=== PATIENT | female | born 1955 | race Caucasian/White ===

== ENCOUNTER → 2023-08-22 10:05 | Outpatient (REF) | payer MEDICARE, OTHER, SELFPAY ==
[2023-08-22 11:38] LABS: % Basophils 1.2 % (0-2); % Eosinophils 4.7 % (0-6); % Immature Granulocytes 0.3 % (0-0.5); % Lymphocytes 28.8 % (20.5-51.1); % Monocytes 9.1 % (1.7-9.3); % Neutrophils 55.9 % (42.2-75.2); Absolute Basophils 0.1 10^3/uL (0-0.2); Absolute Eosinophils 0.3 10^3/uL (0-0.7); Absolute Lymphocytes 1.9 10^3/uL (1.2-3.4); Absolute Monocytes 0.6 10^3/uL (0.1-0.6); Absolute Neutrophils 3.6 10^3/uL (1.4-6.5); Hematocrit 41.9 % (37.0-47.0); Hemoglobin 13.7 g/dL (12.0-16.0); Mean Corp Hgb Conc. 32.7 g/dL (33.0-37.0); Mean Corpuscular Hgb 26.9 pg (27.0-31.0); Mean Corpuscular Volume 82.3 fL (81.0-99.0); Mean Platelet Volume 9.4 fL (7.4-10.4); Nucleated Red Blood Cells % 0 %; Platelet Count 322 10^3/uL (130-400); Red Blood Cell Count 5.09 10^6/uL (4.20-5.40); Red Cell Dist. Width 14.5 % (11.5-14.5); White Blood Cell Count 6.5 10^3/uL (4.8-10.8)
[2023-08-22 12:15] LABS: ALT (SGPT) 18 U/L (0-35); AST (SGOT) 29 U/L (14-36); Albumin 4.7 g/dl (3.5-5.0); Alkaline Phosphatase 113 U/L (38-126); Blood Urea Nitrogen 24 mg/dl (7-17); Carbon Dioxide 24 mmol/L (22-30); Chloride 106 mmol/L (98-107); Glucose 107 mg/dl (70-99); HDL Cholesterol 72 mg/dl; LDL Cholesterol, Calculated 194 mg/dl; Potassium 4.6 mmol/L (3.5-5.1); Sodium 140 mmol/L (135-145); Total Bilirubin 0.5 mg/dl (0.2-1.3); Total Cholesterol 303 mg/dl (50-199); Total Protein 7.5 g/dl (6.3-8.2); Triglyceride 187 mg/dl (10-149); Very Low Density Lipoprotein 37 mg/dl (0-30); eGFR > 60.00
[2023-08-22 12:19] LABS: TSH Reflex To Free T4 1.47 uIU/ml (0.47-4.68)
== END ==
LOC: HWLAB 10:05
PROVIDERS: ATTENDING PHYSICIAN Family Medicine
DX: E78.49 Other hyperlipidemia (principal); E78.5 Hyperlipidemia, unspecified; E66.3 Overweight
CPT/HCPCS: 36415; 80053; 80061; 84443; 85025

== ENCOUNTER 2023-12-03 19:53 | Emergency (ER) | payer MEDICARE, OTHER, SELFPAY ==
[2023-12-03 20:00] VITALS: BP 162/81
--- NOTE | 2023-12-03 22:05 | ED.SKININJ ---
HPI-Injury
General
Chief Complaint: Skin Problem
Source: patient
Exam Limitations: none
Time Seen by Provider: 12/03/23 21:21
History of Present Illness-Injury
Initial Injury comments:
68-year-old female presents with puncture wound to left foot. She stepped on a metal stake through her shoe and punctured her foot. She states it went in about a half an inch to an inch. She pulled it out. Went to an urgent care had x-rays taken
and she was told she had a foreign body and was told to come in here for evaluation. She received a tetanus vaccine at the urgent care. She notes pain to the plantar surface of her foot.
Past History
Past History
ED Past Medical History: Hypercholesterolemia
Social History
Tobacco: Non-smoker
Alcohol: Occasional
Drug: None
Personal:
Living: with family
Phy Exam
Physical Exam
Physical Exam:
General: Well-appearing female no acute respiratory distress
Skin: Small puncture wound noted plantar surface left foot at the level of the MTP joint of the first toe no visible or palpable foreign bodies. There is no bleeding. No surrounding erythema.
Musculoskeletal exam: The patient is tender over the plantar surface of the left foot at the MTP joint of the first toe
Course
Orders/Labs/Results
Orders:
Orders
12/03/23 21:59
Ciprofloxacin HCl [Cipro] 500 mg PO NOW STA
Vital Signs
Initial and Last Documented VS:
Initial Vital Signs
Temp Pulse Resp BP Pulse Ox
98.2 F 77 20 162/81 99
12/03/23 20:00 12/03/23 20:00 12/03/23 20:00 12/03/23 20:00 12/03/23 20:00
Last Documented Vital Signs
Temp Pulse Resp BP Pulse Ox
98.2 F 77 20 162/81 99
12/03/23 20:00 12/03/23 20:00 12/03/23 20:00 12/03/23 20:00 12/03/23 20:00
MDM/Problems Addressed
Differential Diagnosis Includes:
X-rays from the urgent care were loaded onto the system and I have visualized these personally and discussed them with emergency room attending and saw them as well. Also showed the x-rays to the patient. There is no visible metallic foreign body
on the x-ray. There was concern for potential foam or rubber going into the foot from the puncture however upon inspection of the shoe there is no missing material. I do not suspect that this is the case. She received a tetanus vaccine already
today. Will start on Cipro for prophylaxis. Recommended warm compresses. Stable for discharge
*Critical Care Note
Total Time (30-74mins, 75-104mins- exclusive of procedures): Not Applicable
ED Attending Note
-
Portions of this chart may have been created with voice recognition software.� Occasional wrong word or��sound alike� substitutions may have occurred due to the inherent limitations of voice recognition software.
Discharge Plan
Departure
Patient Disposition: Home (Routine Discharge)
Date of Disposition: 12/03/23
Time of Disposition: 22:07
Patient with high blood pressure during this ER visit?: No
Discharge Problem:
Puncture wound
Instructions: Wound Care (DC)
Prescriptions:
New
ciprofloxacin HCl [Cipro] 500 mg tablet
500 mg PO BID Qty: 14 0RF
No Action
famotidine 40 mg tablet
40 mg PO HSPRN PRN (Reason: heartburn/acid reflux)
ascorbic acid (vitamin C) [Vitamin C] 500 mg Tablet
500 mg PO DAILY
pantoprazole 40 mg tablet,delayed release (DR/EC)
40 mg PO DAILY
albuterol sulfate 90 mcg/actuation HFA aerosol inhaler
1 puff INHALATION R Q4HPRN PRN (Reason: sob/wheezing)
lecith-Ca jpqr-K-hqawb-garlic Tablet
1 tab PO DAILY
cholecalciferol (vitamin D3) [Vitamin D3] 25 mcg (1,000 unit) Tablet
25 mcg PO DAILY
coQ10 (ubiquinol) 100 mg Capsule
100 mg PO DAILY
magnesium oxide 400 mg magnesium Tablet
400 mg PO DAILY
utgpnoikvs-mwvdmsygeodgc-mrfg 50-325-40 mg Tablet
1 tab PO Q4H PRN (Reason: migraine)
docusate sodium 100 mg Capsule
100 mg PO BID Qty: 15 0RF
prednisone 10 mg tablet
10 mg PO DIRECTED Qty: 12 0RF
Rx Instructions:
30mg daily *2 days
20mg daily *2 days
10MG daily * 2 days
polyethylene glycol 3350 [HealthyLax] 17 gram Powder In Packet
17 g PO DAILY Qty: 7 0RF
dextromethorphan-guaifenesin 10-100 mg/5 mL Syrup
10 ml PO Q4HPRN PRN (Reason: cough) Qty: 1 0RF
Rx Instructions:
buy over the counter
guaifenesin 600 mg Tablet Extended Release 12hr
600 mg PO Q12 Qty: 15 0RF
cefuroxime axetil 500 mg tablet
500 mg PO BID 4 Days Qty: 8 0RF
benzonatate 100 mg Capsule
100 mg PO TIDPRN PRN (Reason: cough) Qty: 20 0RF
albuterol sulfate 1.25 mg/3 mL Solution For Nebulization
1.25 mg inhalation R Q4HPRN PRN (Reason: shortness of breath/wheezing) Qty: 75 0RF
doxycycline hyclate 100 mg Capsule
100 mg PO BID Qty: 8 0RF
Referrals:
Ela Marroquin MD [Family Provider] -
Activity Restrictions/Additional Instructions:
Keep clean. Take antibiotic as directed. Use Tylenol or ibuprofen for pain. Return for worsening redness swelling pain fever or chills
Interventions
Interventions:
*Risk Screen - Suicide Last Done: 12/03/23 20:00
*General Assessment Last Done: 12/03/23 20:00
*Neglect/Abuse Screening Last Done: 12/03/23 20:00
Discharge Date and Time
Print Language: LITHUANIAN
[2023-12-03] MEDS: CIPRO 500 MG PO (22:12)
== END 2023-12-03 22:20 | disposition home or self-care (01) ==
LOC: EMR 19:53
PROVIDERS: EMERGENCY PHYSICIAN Emergency Medicine; FAMILY PHYSICIAN Family Medicine
DX: S91.332A Puncture wound without foreign body, left foot, initial encounter (principal); W22.8XXA Striking against or struck by other objects, initial encounter; E78.00 Pure hypercholesterolemia, unspecified
CPT/HCPCS: 99283

== ENCOUNTER → 2024-04-08 10:34 | Outpatient (REF) | payer MEDICARE, OTHER, SELFPAY | LOC: HWRAD 10:34 | PROVIDERS: ATTENDING PHYSICIAN Nurse Practitioner Adult Health | DX: R05.1 Acute cough (principal) | CPT/HCPCS: 71046 ==

== ENCOUNTER → 2024-04-22 10:01 | Outpatient (REF) | payer MEDICARE, OTHER, SELFPAY ==
[2024-04-22 10:31] LABS: % Basophils 0.8 % (0-2); % Eosinophils 5.6 % (0-6); % Immature Granulocytes 0.4 % (0-0.5); % Lymphocytes 23.7 % (20.5-51.1); % Monocytes 8.9 % (1.7-9.3); % Neutrophils 60.6 % (42.2-75.2); Absolute Basophils 0.1 10^3/uL (0-0.2); Absolute Eosinophils 0.5 10^3/uL (0-0.7); Absolute Lymphocytes 2.3 10^3/uL (1.2-3.4); Absolute Monocytes 0.9 10^3/uL (0.1-0.6); Absolute Neutrophils 5.9 10^3/uL (1.4-6.5); Hematocrit 43.7 % (37.0-47.0); Mean Corpuscular Volume 84.4 fL (81.0-99.0); Mean Platelet Volume 8.5 fL (7.4-10.4); Nucleated Red Blood Cells % 0 %; Platelet Count 326 10^3/uL (130-400); Red Blood Cell Count 5.18 10^6/uL (4.20-5.40); Red Cell Dist. Width 15.1 % (11.5-14.5); White Blood Cell Count 9.7 10^3/uL (4.8-10.8)
[2024-04-22 10:44] LABS: ALT (SGPT) 17 U/L (0-35); AST (SGOT) 23 U/L (14-36); Albumin 4.7 g/dl (3.5-5.0); Alkaline Phosphatase 116 U/L (38-126); Blood Urea Nitrogen 14 mg/dl (7-17); Calcium 9.7 mg/dl (8.4-10.2); Carbon Dioxide 28 mmol/L (22-30); Chloride 102 mmol/L (98-107); Glucose 98 mg/dl (70-99); Potassium 4.2 mmol/L (3.5-5.1); Sodium 139 mmol/L (135-145); Total Bilirubin 0.3 mg/dl (0.2-1.3); Total Protein 7.3 g/dl (6.3-8.2); eGFR > 60.00
== END ==
LOC: RAD 10:01
PROVIDERS: ATTENDING PHYSICIAN Nurse Practitioner Adult Health; FAMILY PHYSICIAN Family Medicine
DX: R10.32 Left lower quadrant pain (principal)
CPT/HCPCS: 36415; 74177; 80053; 85025; 86140; Q9967

== ENCOUNTER → 2024-04-23 14:05 | Outpatient (REF) | payer MEDICARE, OTHER, SELFPAY | LOC: RAD 14:05 | PROVIDERS: ATTENDING PHYSICIAN Nurse Practitioner Adult Health; FAMILY PHYSICIAN Family Medicine | DX: R10.2 Pelvic and perineal pain (principal) | CPT/HCPCS: 76830; 76856 ==

== ENCOUNTER → 2024-05-08 14:07 | Outpatient (REF) | payer MEDICARE, OTHER, SELFPAY | LOC: RAD 14:07 | PROVIDERS: ATTENDING PHYSICIAN Nurse Practitioner; FAMILY PHYSICIAN Family Medicine; OTHER PHYSICIAN Nurse Practitioner Adult Health | DX: R10.13 Epigastric pain (principal) | CPT/HCPCS: 74019 ==

== ENCOUNTER 2024-05-09 06:21 | Day surgery (SDC) | payer MEDICARE, OTHER, SELFPAY | END 2024-05-09 13:47 | disposition home or self-care (01) | LOC: GI 06:21 | PROVIDERS: ATTENDING PHYSICIAN Internal Medicine Gastroenterology | DX: R10.13 Epigastric pain (principal); K22.89 Other specified disease of esophagus; K44.9 Diaphragmatic hernia without obstruction or gangrene; K31.7 Polyp of stomach and duodenum; K22.70 Barrett's esophagus without dysplasia | CPT/HCPCS: 43239; 88305; 88342 ==

== ENCOUNTER 2024-05-09 16:46 | Emergency (ER) | payer MEDICARE, OTHER, SELFPAY ==
[2024-05-09 17:01] VITALS: BP 182/95
[2024-05-09 17:42] LABS: % Basophils 0.4 % (0-2); % Eosinophils 2.9 % (0-6); % Immature Granulocytes 0.4 % (0-0.5); % Lymphocytes 15.3 % (20.5-51.1); % Monocytes 6.5 % (1.7-9.3); % Neutrophils 74.5 % (42.2-75.2); Absolute Basophils 0.1 10^3/uL (0-0.2); Absolute Eosinophils 0.4 10^3/uL (0-0.7); Absolute Immature Granulocytes 0.1 10^3/uL (0-0.05); Absolute Lymphocytes 2.3 10^3/uL (1.2-3.4); Absolute Neutrophils 11.4 10^3/uL (1.4-6.5); Hematocrit 43.6 % (37.0-47.0); Hemoglobin 14.3 g/dL (12.0-16.0); Mean Corp Hgb Conc. 32.8 g/dL (33.0-37.0); Mean Corpuscular Hgb 27.4 pg (27.0-31.0); Mean Corpuscular Volume 83.5 fL (81.0-99.0); Mean Platelet Volume 8.6 fL (7.4-10.4); Nucleated Red Blood Cells % 0 %; Platelet Count 343 10^3/uL (130-400); Red Blood Cell Count 5.22 10^6/uL (4.20-5.40); Red Cell Dist. Width 15.2 % (11.5-14.5); White Blood Cell Count 15.3 10^3/uL (4.8-10.8)
[2024-05-09 17:55] LABS: ALT (SGPT) 15 U/L (0-35); AST (SGOT) 22 U/L (14-36); Albumin 4.1 g/dl (3.5-5.0); Alkaline Phosphatase 93 U/L (38-126); Blood Urea Nitrogen 17 mg/dl (7-17); Calcium 8.9 mg/dl (8.4-10.2); Carbon Dioxide 29 mmol/L (22-30); Chloride 103 mmol/L (98-107); Glucose 105 mg/dl (70-99); Lipase 101 U/L (23-300); Sodium 137 mmol/L (135-145); Total Bilirubin 0.4 mg/dl (0.2-1.3); Total Protein 6.6 g/dl (6.3-8.2); eGFR 41.24
[2024-05-09 18:24] VITALS: BP 158/77
[2024-05-09 18:30] VITALS: BP 161/69
--- NOTE | 2024-05-09 19:16 | ED.GENMED ---
History of Present Illness
General
Chief Complaint: Abdominal Pain
Source: patient
Exam Limitations: none
Time Seen by Provider: 05/09/24 18:27
Nursing documentation reviewed up to this point in time: agreed with
History of Present Illness
History of Present Illness:
pt is a 69 y/o F with h/o hld, GERD, mgiraines
IBS, diverrticulitis, barretts
known to GI
2 weeks of abd pain
bloating, upper abd pain mostly, worse with eating; some constipation which she has tried to treat with miralax
had CT initially about 2 weeks ago showing mild fecal burden, diverticulosis without itits; hepatic cysts
also had sinusitis so her pcp put her on augmentin and steoirds
she never got better
started bentyl and really got constipatioed so she stopped that
saw GI and was bumped up yestreday to pantoprazole 40 mg bid and added sulcrafate
today sh ehad endoscopy by dr. phillips and was told there was no concerning findings
she went home and had some pastina for lunch and had severe pain 10/10
the pain is back down to 7/10
bloating persists
Past History
Past History
ED Past Medical History: Hypercholesterolemia
Social History
Tobacco: Non-smoker
Alcohol: Occasional
Drug: None
Personal:
Living: with family
Phy Exam
Physical Exam
Physical Exam:
GENERAL: Alert , in no apparent distress
EYE: pupils equal and reactive
NECK: Supple
ENT: o/p clr, mmm.
CARDIAC: Regular rate and rhythm .
LUNGS: Clear breath sounds bilaterally, no acute respiratory distress, no wheezes/rales/rhonchi
ABDOMEN: distended/bloated; not fludi filled; hyperactive bowel sounds, mild tenderness upper abd and minimal lower abd; mostly just bloated
SKIN: Warm and dry, skin intact.
MUSCULOSKELETAL: No edema, well perfused. neg claudia's sign
PSYCH: Normal and appropriate interaction.
Course
Orders/Labs/Results
Orders:
Orders
05/09/24 17:03
US Abdomen Complete/Upper Urgent
Comment:
Reason For Exam: epigastric pain X 2 weeks
05/09/24 17:27
Complete Blood Count/With Diff Urgent
Comprehensive Metabolic Panel Urgent
Lipase Urgent
05/09/24 19:12
0.9% Sodium Chloride 1000 ml [Nss] 1,000 ml IV BOLUS
HYDROmorphone [Dilaudid] 1 mg IV NOW STA
Sucralfate Suspension [Carafate Suspension] 1 gm PO NOW STA
05/09/24 19:18
CT Abd/pel W Iv And Oral Contr Urgent
Comment: endoscopy today
Reason For Exam: upper abd pain, bloating, severe, worsening
Iohexol [Omnipaque] See Protocol PO NOW STA
05/09/24 19:50
HYDROmorphone [Dilaudid] 0.5 mg IV NOW STA
Ondansetron Injectable [Zofran] 4 mg IV NOW STA
05/09/24 20:39
Urinalysis Reflex To Culture Urgent
Date Specimen was Collected: 05/09/24
Time Specimen was Collected: 20:37
05/09/24 21:57
HYDROmorphone [Dilaudid] 0.5 mg .ROUTE .STK-MED ONE
05/09/24 21:58
HYDROmorphone [Dilaudid] 0.5 mg IV NOW STA
05/09/24 23:49
COVID-19 Antigen Urgent
Source: Nasal Swab
Abnormal Lab Results
05/09/24
17:27
WBC 15.3 H 10^3/uL
(4.8-10.8)
MCHC 32.8 L g/dL
(33.0-37.0)
RDW 15.2 H %
(11.5-14.5)
Abs Immat Gran (auto) 0.1 H 10^3/uL
(0-0.05)
Absolute Neuts (auto) 11.4 H 10^3/uL
(1.4-6.5)
Absolute Monos (auto) 1.0 H 10^3/uL
(0.1-0.6)
Lymphocytes % 15.3 L %
(20.5-51.1)
Creatinine 1.4 H mg/dL
(0.6-1.0)
Glucose 105 H mg/dl
(70-99)
05/09/24 17:27
05/09/24 17:27
Vital Signs
Initial and Last Documented VS:
Initial Vital Signs
Pulse Resp BP Pulse Ox
89 18 182/95 97
05/09/24 17:01 05/09/24 17:01 05/09/24 17:01 05/09/24 17:01
Last Documented Vital Signs
Temp Pulse Resp BP Pulse Ox
36.8 C 91 20 139/58 98
05/09/24 23:05 05/09/24 23:05 05/09/24 23:05 05/09/24 23:05 05/10/24 00:26
MDM/Problems Addressed
Differential Diagnosis Includes:
gastritis, gerd, constipation, ileus, pancreatitis, holeltihasisi
MDM/Problems Addressed:
69 y/o F
h/o GI symptoms for years
2 weeks ago started wth bloating, epigastri pain after having abx and steroids and had outpatient CT which showed some stool,
she tried miralax
had outpatient ct which was neg
endoscopy today which was neg
uppe dher ppi and carafate yesteday
pain severe with eating today after endoscopy
pain improved before arrval but she still feels bloated. On exam the patient is distended but is soft and has some epigastric tenderness but no guarding or rigidity. She is not vomiting. I discussed the case with her GI doctor who happened to be
on-call who is aware that she is here. She did agree with the plan for repeating the CT to make sure there is no ileus or bowel obstruction. Her ultrasound was negative for gallstones or gallbladder disease. Her lipase was normal. She does have
a leukocytosis now and a bump in her creatinine, she was given IV fluids and she has no obstructive uropathy or findings on her UA. Her CT scan was reviewed and does not have significant stool burden, there is some atelectasis in her bases but
there is no findings in her belly to explain her pain. I reassessed her after pain medication and she was feeling better. She was able to tolerate the oral contrast but she does have some distention. She is not vomiting. She ate some crackers
and drank some water and feels comfortable going home with the plan of continuing to take the PPI twice daily as well as Carafate and follow-up with GI. Return precautions given
*Critical Care Note
Total Time (30-74mins, 75-104mins- exclusive of procedures): Not Applicable
ED Attending Note
-
Portions of this chart may have been created with voice recognition software.� Occasional wrong word or��sound alike� substitutions may have occurred due to the inherent limitations of voice recognition software.
Discharge Plan
Departure
Patient Disposition: Home (Routine Discharge)
Date of Disposition: 05/10/24
Time of Disposition: 00:03
Patient with high blood pressure during this ER visit?: No
Condition: Fair
Discharge Problem:
Abdominal pain
Instructions: Abdominal Pain
Prescriptions:
No Action
famotidine 40 mg tablet
40 mg PO HSPRN PRN (Reason: heartburn/acid reflux)
pantoprazole 40 mg tablet,delayed release (DR/EC)
40 mg PO BID
dbhcxcbmmi-zdsmhhvoqcesz-lsxv 50-325-40 mg Tablet
1 tab PO Q4H PRN (Reason: migraine)
polyethylene glycol 3350 [HealthyLax] 17 gram Powder In Packet
17 g PO DAILY Qty: 7 0RF
docusate sodium 100 mg capsule
100 mg PO BID PRN (Reason: constipation)
sucralfate 1 gram Tablet
1 g PO QID
Referrals:
Ela Marroquin MD [Family Provider] - Follow up in 2-3 days
Activity Restrictions/Additional Instructions:
YOUR CAT SCAN DID NOT SHOW ANY OBVIOUS CAUSE FOR YOUR PAIN
YOU SEEMED TO HAVE A LOT OF BLOATING AND DISTENSION. YOU CAN TRY MIRALAX ONCE OR WTICE A DAY FOR 2 DAYS
CONTINUE YOUR PANTOPRAZOLE TWICE A DAY PLANNED
CLEAR LIQUIDS/BLAND DIET FOR A FEW DAYS
CARAFATE PRESCRIBED
FOLLOW UP WITH GI
YOU HAD NO FINDINGS TO EXPLAIN YOUR PAIN BUT YOU COULD HAVE HAD A SPASM TODAY
RETURN FOR ANY CONCERNS.
MAKE SURE TO DRINK FLUIDS, YOUR KIDNEY FUNCTION WENT UP A LITTLE AND COULD BE INDICATING DEHYDRATION
Interventions
Interventions:
*Risk Screen - Suicide Last Done: 05/09/24 18:27
*General Assessment Last Done: 05/09/24 18:27
*Neglect/Abuse Screening Last Done: 05/09/24 18:27
ED- Fall Risk Assessment Last Done: 05/09/24 18:27
*ED COVID-19 Vaccine History Last Done: 05/09/24 23:05
*Nursing Disposition Last Done: 05/10/24 00:26
[facility]-Wawubq-Kfmhiosoko Assessment Last Done: 05/09/24 20:13
Discharge Date and Time
Discharge Date/Time: 05/10/24 00:48
Print Language: LIBERIAN
[2024-05-09] MEDS: CARAFATE SUSPENSION 1 GM PO (20:04)
[2024-05-09] MEDS: NSS 1000 IV (20:09)
[2024-05-09 20:10] VITALS: BP 140/61
[2024-05-09] MEDS: OMNIPAQUE 50 ML PO (20:26)
[2024-05-09] MEDS: ZOFRAN 4 MG IV (20:27)
[2024-05-09] MEDS: DILAUDID 0.5 MG IV ×2 (20:27→21:58)
[2024-05-09] MEDS: DILAUDID 1 MG IV (20:29)
[2024-05-09 20:50] LABS: Urine Albumin Negative (Neg - Trace); Urine Bilirubin Negative (Negative); Urine Character Clear (Clear); Urine Color Yellow; Urine Glucose Negative (Negative); Urine Ketone Negative (Negative); Urine Leukocyte Negative (Negative); Urine Nitrite Negative (Negative); Urine Occult Blood Negative (Negative); Urine Urobilinogen Negative (Neg - 1+)
[2024-05-09 21:34] VITALS: BP 141/65
[2024-05-09 23:05] VITALS: BP 139/58
[2024-05-10 00:13] LABS: COVID-19 Antigen Negative (Negative)
== END 2024-05-10 00:48 | disposition home or self-care (01) ==
LOC: EMR 16:46
PROVIDERS: Emergency Medicine; Physician Assistant; EMERGENCY PHYSICIAN Student in an Organized Health Care Education/Training Program; FAMILY PHYSICIAN Family Medicine
DX: R10.10 Upper abdominal pain, unspecified (principal); E78.5 Hyperlipidemia, unspecified; K21.9 Gastro-esophageal reflux disease without esophagitis; Z11.52 Encounter for screening for COVID-19
CPT/HCPCS: 99285; 96374; 96375; 96361; 96376; 74177; 76700; 80053; 81003; 83690; 85025; 87811; Q9967

== ENCOUNTER → 2024-05-15 07:37 | Outpatient (REF) | payer MEDICARE, OTHER, SELFPAY | LOC: RAD 07:37 | PROVIDERS: ATTENDING PHYSICIAN Internal Medicine Gastroenterology; FAMILY PHYSICIAN Family Medicine | DX: R10.13 Epigastric pain (principal) | CPT/HCPCS: 78264; A9541 ==

== ENCOUNTER → 2024-05-30 11:38 | Outpatient (REF) | payer MEDICARE, OTHER, SELFPAY | LOC: RAD 11:38 | PROVIDERS: ATTENDING PHYSICIAN Family Medicine | DX: R05.3 Chronic cough (principal) | CPT/HCPCS: 71260; Q9967 ==

== ENCOUNTER → 2024-07-29 06:50 | Outpatient (REF) | payer MEDICARE, OTHER, SELFPAY ==
[2024-07-29 10:21] LABS: % Eosinophils 7.4 % (0-6); % Immature Granulocytes 0.4 % (0-0.5); % Lymphocytes 35.5 % (20.5-51.1); % Neutrophils 46.7 % (42.2-75.2); Absolute Basophils 0.1 10^3/uL (0-0.2); Absolute Eosinophils 0.5 10^3/uL (0-0.7); Absolute Lymphocytes 2.5 10^3/uL (1.2-3.4); Absolute Monocytes 0.6 10^3/uL (0.1-0.6); Absolute Neutrophils 3.3 10^3/uL (1.4-6.5); Hematocrit 43.1 % (37.0-47.0); Hemoglobin 13.8 g/dL (12.0-16.0); Mean Corpuscular Hgb 27.3 pg (27.0-31.0); Mean Corpuscular Volume 85.3 fL (81.0-99.0); Mean Platelet Volume 9.9 fL (7.4-10.4); Nucleated Red Blood Cells % 0 %; Platelet Count 357 10^3/uL (130-400); Red Blood Cell Count 5.05 10^6/uL (4.20-5.40); Red Cell Dist. Width 14.5 % (11.5-14.5)
[2024-07-29 10:34] LABS: ALT (SGPT) 16 U/L (0-35); AST (SGOT) 21 U/L (14-36); Albumin 4.2 g/dl (3.5-5.0); Alkaline Phosphatase 89 U/L (38-126); Blood Urea Nitrogen 25 mg/dl (7-17); Calcium 9.6 mg/dl (8.4-10.2); Carbon Dioxide 26 mmol/L (22-30); Chloride 105 mmol/L (98-107); Glucose 106 mg/dl (70-99); HDL Cholesterol 65 mg/dl; LDL Cholesterol, Calculated 85 mg/dl; Potassium 4.7 mmol/L (3.5-5.1); Sodium 143 mmol/L (135-145); Total Bilirubin 0.5 mg/dl (0.2-1.3); Total Cholesterol 181 mg/dl (50-199); Total Protein 6.8 g/dl (6.3-8.2); Triglyceride 158 mg/dl (10-149); Very Low Density Lipoprotein 31 mg/dl (0-30); eGFR > 60.00
[2024-07-29 10:58] LABS: TSH Reflex To Free T4 3.07 uIU/ml (0.47-4.68)
== END ==
LOC: HWLAB 06:50
PROVIDERS: ATTENDING PHYSICIAN Family Medicine
DX: E78.49 Other hyperlipidemia (principal); K22.70 Barrett's esophagus without dysplasia
CPT/HCPCS: 36415; 80053; 80061; 84443; 85025

== ENCOUNTER → 2024-08-08 16:23 | Outpatient (REF) | payer MEDICARE, OTHER, SELFPAY | LOC: DHSLP 16:23 | PROVIDERS: ATTENDING PHYSICIAN Internal Medicine Critical Care Medicine; FAMILY PHYSICIAN Family Medicine | DX: G47.33 Obstructive sleep apnea (adult) (pediatric) (principal) | CPT/HCPCS: 95800 ==

== ENCOUNTER → 2024-09-16 07:32 | Outpatient (REF) | payer MEDICARE, OTHER, SELFPAY | LOC: HWWDC 07:32 | PROVIDERS: ATTENDING PHYSICIAN Family Medicine | DX: Z12.31 Encounter for screening mammogram for malignant neoplasm of breast (principal) | CPT/HCPCS: 77063; 77067 ==